=== PATIENT | female | born 1935 | race Caucasian/White ===

== ENCOUNTER 2017-10-17 04:13 | Emergency (ER) | payer OTHER ==
[~2017-10-17] VITALS: Ht 172.7 cm; Wt 71.7 kg
[2017-10-17 04:19] VITALS: Ht 172.7 cm; Wt 71.7 kg
[2017-10-17 07:06] VITALS: BP 139/72
== END 2017-10-17 07:06 | disposition home or self-care (01) ==
LOC: ED 04:13
DX: S71.111A Laceration without foreign body, right thigh, initial encounter (principal); Z88.2 Allergy status to sulfonamides; E11.9 Type 2 diabetes mellitus without complications; J44.9 Chronic obstructive pulmonary disease, unspecified; W20.8XXA Other cause of strike by thrown, projected or falling object, initial encounter; Y93.89 Activity, other specified; Y92.89 Other specified places as the place of occurrence of the external cause; Y99.8 Other external cause status; E03.9 Hypothyroidism, unspecified
CPT/HCPCS: 90715; J2001

== ENCOUNTER 2017-12-09 12:32 | Emergency (ER) | payer OTHER ==
[~2017-12-09] VITALS: Ht 167.6 cm; Wt 72.6 kg
[2017-12-09 12:41] VITALS: Ht 167.6 cm; Wt 72.6 kg
[2017-12-09 13:02] LABS: BASOPHIL % 0.5 % (0-2); PLATELET COUNT 270 x10^3mcL (130-400)
[2017-12-09 13:12] LABS: CALCIUM 10.5 mg/dL (8.5-10.1); CARBON DIOXIDE 29.8 mmol/L (21-32); CHLORIDE SERUM 103 mmol/L (98-107); CREATININE SERUM 0.9 mg/dL (0.6-1.0); GLUCOSE SERUM 103 mg/dL (74-106); POTASSIUM SERUM 4.4 mmol/L (3.5-5.1); SODIUM SERUM 140 mmol/L (136-145)
[2017-12-09 13:16] LABS: ALBUMIN 3.7 g/dL (3.4-5.0); ALKALINE PHOSPHATASE 90 U/L (46-116); ALT/SGPT 21 U/L (14-59); AST/SGOT 16 U/L (15-37); BILIRUBIN TOTAL 0.25 mg/dL (0.20-1.00); LIPASE 168 IU/L (73-393); TOTAL PROTEIN, SERUM 7.4 g/dL (6.4-8.2)
[2017-12-09 14:47] VITALS: BP 112/601
== END 2017-12-09 14:47 | disposition home or self-care (01) ==
LOC: ED 12:32
PROVIDERS: Emergency Medicine
DX: S01.01XA Laceration without foreign body of scalp, initial encounter (principal); S09.90XA Unspecified injury of head, initial encounter; J45.909 Unspecified asthma, uncomplicated; J44.9 Chronic obstructive pulmonary disease, unspecified; E11.9 Type 2 diabetes mellitus without complications; Z85.3 Personal history of malignant neoplasm of breast; E03.9 Hypothyroidism, unspecified; W18.39XA Other fall on same level, initial encounter; Y93.01 Activity, walking, marching and hiking; Y92.89 Other specified places as the place of occurrence of the external cause; Y99.8 Other external cause status; Z88.2 Allergy status to sulfonamides
CPT/HCPCS: 36415

== ENCOUNTER 2019-01-31 16:17 | Inpatient (IN) | payer OTHER ==
[~2019-01-31] VITALS: Ht 167.6 cm; Wt 70.8 kg
[2019-01-31 16:20] VITALS: Ht 167.6 cm; Wt 70.8 kg
--- NOTE | 2019-01-31 16:27 | NUR ---
PER MEDIC PT LIVES IN A CUSTODIAL WHERE SHE STARTED TO HAVE CHEST PRESSURE. PER MEDIC UPON ARRIVAL PT STS SHE HAD EPIGASTRIC PAIN THAT SUBSIDED. PT STS THAT SHE IS NOT HAVING CHEST PRESSURE AT THIS TIME. PT STS THAT THE CHEST PAIN IS INTERMITTENT AND RADIATES TO HER BACK. PT STS SHE IS LOSING HER VISION SO SHE IS ALWAYS DIZZY. PT DENEIES ANY NUMBNESS AT THIS TIME. PT STS SHE HAS SOME FATIGUE BUT NOTHING OUT OF THE NORMAL. +EQUAL [employer]NA[employer], -FACIAL DROOP. VSS. RESP E/U. NO DISTRESS NOTED. WILL CONTINUE TO MONITOR. PER MEDIC GAVE 1 SPRAY NITRO, ASPRIN 324MG PO, 4MG ZOFRAN IV. PT DENIES ANY NAUSEA AT THIS TIME.
--- NOTE | 2019-01-31 16:51 | NUR ---
CHEST XRAY IN PROGRESS.
--- NOTE | 2019-01-31 16:59 | NUR ---
LAB AT BEDSIDE.
[2019-01-31 17:16] LABS: CALCIUM 9.1 mg/dL (8.5-10.1); CARBON DIOXIDE 31.7 mmol/L (21-32); CHLORIDE SERUM 105 mmol/L (98-107); CREATININE SERUM 0.9 mg/dL (0.6-1.0); GLUCOSE SERUM 111 mg/dL (74-106); POTASSIUM SERUM 4.2 mmol/L (3.5-5.1); SODIUM SERUM 141 mmol/L (136-145)
[2019-01-31 17:21] LABS: ALBUMIN 3.5 g/dL (3.4-5.0); ALKALINE PHOSPHATASE 139 U/L (46-116); ALT/SGPT 47 U/L (14-59); AST/SGOT 80 U/L (15-37); BASOPHIL % 0.3 % (0-2); BILIRUBIN TOTAL 0.29 mg/dL (0.20-1.00); PLATELET COUNT 264 x10^3mcL (130-400); RED CELL DISTRIBUTION WIDTH 13.2 % (11.5-14.5); TOTAL PROTEIN, SERUM 6.9 g/dL (6.4-8.2)
--- NOTE | 2019-01-31 17:48 | NUR ---
PT IN POSITION OF COMFORT. PT NOT C/O CHEST DISCOMFORT AT THIS TIME. VSS. WILL CONTINUE TO MONITOR.
--- NOTE | 2019-01-31 18:53 | NUR ---
PT GIVEN DINNER FROM [facility] [place]. PT STS "I AM NOT THAT HUNGRY". PT STS TO LEAVE TRAY AT BEDSIDE. WILL CONTINUE TO MONITOR.
--- NOTE | 2019-01-31 19:12 | NUR ---
REPORT GIVEN TO DINESH FLORES, TO ASSUME CARE OF PT.
--- NOTE | 2019-01-31 19:17 | NUR ---
REPORT RECEIVED FROM JEANINE FLORES
--- NOTE | 2019-01-31 19:23 | NUR ---
PT. SITTING UP IN BED, AAOX4, NO ACUTE DISTRESS NOTED, DENIES PAIN, PT. ATE 75% OF DINNER WITHOUT DIFFICULTY, DENIES SOB, PENDING ROOM, VSS, WILL MONITOR. REPOSITIONED PT. FOR COMFORT.
--- NOTE | 2019-01-31 20:02 | NUR ---
REPORT GIVEN TO DEBORAH FLORES TELE
--- NOTE | 2019-01-31 20:23 | NUR ---
RECEIVED PT FROM ED. PT A/OX4. DENIES PAIN. DENIES SOB ON 2LNC. IV PATENT TO LAC. FAMILY AT BEDSIDE. ORIENTED PT TO ROOM AND SURROUNDINGS. CALL LIGHT WITHIN REACH, BED IN LOW POSITION. WILL CONTINUE TO MONITOR.
--- NOTE | 2019-01-31 21:38 | NUR ---
PT AND FAMILY INSIST ON PATIENT WEARING DIAPERS FROM HOME. PT AND FAMILY MADE AWARE OF POTENTAL FOR SKIN BREAKDOWN. PATIENT VERBALIZED UNDERSTANDING AND STILL INSISTED ON WEARING DIAPER.
[2019-01-31] MEDS ORDERED: NORCO1 TA2 PO (22:15)
[2019-01-31] MEDS ORDERED: HIPREX1 GM PO (22:15)
[2019-01-31] MEDS ORDERED: GABAPENTIN300 M4 PO (22:16)
[2019-01-31] MEDS ORDERED: CLARITIN10 MG PO (22:17)
[2019-01-31] MEDS ORDERED: SYNTHROID0.112 MG PO (22:17)
[2019-01-31] MEDS ORDERED: CRANBERRY CONCE PO (22:18)
[2019-01-31] MEDS ORDERED: GABAPENTIN100 M2 PO (22:19)
[2019-01-31] MEDS ORDERED: CITALOPRAM HYDR10 M1 PO (22:20)
[2019-01-31] MEDS ORDERED: CENTURY ADULTS1 EACH PO (22:25)
[2019-01-31] MEDS ORDERED: CALCIUM 600 +1 EACH PO (22:26)
[2019-01-31] MEDS ORDERED: PROBIOTIC1 EAC1 PO (22:27)
[2019-01-31] MEDS ORDERED: DORZOLAMIDE HYD10 M2 OU (22:27)
[2019-01-31] MEDS ORDERED: ALPHAGAN P5 M1 OU (22:29)
[2019-01-31] MEDS ORDERED: ALBUTEROL0.63 MG/3 (22:30)
[2019-01-31 22:52] VITALS: BP 126/53
--- NOTE | 2019-01-31 23:46 | NUR ---
PT RESTING IN NO ACUTE DISTRESS. RR EVEN AND UNLABORED. CALL LIGHT WITHIN REACH, BED IN LOW POSITION. WILL CONTINUE TO MONITOR.
[2019-01-31 23:54] LABS: CHOLESTEROL/HDL RATIO 5.3
[2019-01-31 23:58] LABS: FREE T4 1.25 ng/dL (0.76-1.46); FREE THYROXINE INDEX 3.9 ug/dL (1.4-4.5); T4(THYROXINE) 10.7 ug/dL (4.7-13.3)
[2019-02-01 00:19] LABS: T3 TOTAL 0.76 ng/mL
[2019-02-01 04:19] VITALS: BP 143/57
[2019-02-01 06:46] LABS: BASOPHIL % 0.1 % (0-2); PLATELET COUNT 238 x10^3mcL (130-400); RED CELL DISTRIBUTION WIDTH 13.4 % (11.5-14.5)
[2019-02-01 06:57] LABS: CALCIUM 9.3 mg/dL (8.5-10.1); CARBON DIOXIDE 30.1 mmol/L (21-32); CHLORIDE SERUM 109 mmol/L (98-107); CREATININE SERUM 0.8 mg/dL (0.6-1.0); GLUCOSE SERUM 96 mg/dL (74-106); SODIUM SERUM 145 mmol/L (136-145)
[2019-02-01 07:35] VITALS: BP 130/56
--- NOTE | 2019-02-01 08:11 | NUR ---
HANDOFF REPORT RECEIVED. PATIENT AWAKE AND NOT IN ANY DISTRESS. DENIES ANY CHEST PAINS OR SHORTNESS OF BREATH. INSTRUCTED TO CALL FOR ANY NEED. CALL JOYNER WITHIN REACH.
--- NOTE | 2019-02-01 10:23 | NUR ---
SEEN BY MD MALLOY. CARDIAC CONSULT WAS ORDERED.
--- NOTE | 2019-02-01 11:13 | NUR ---
POTASSIUM 40 MEQ PO FOR K 2.8 AND MAGNESIUM 2 GM IV ( MAG 1.7) GIVEN AND INFUSING IVPB. NO COMPLAINTS.
--- NOTE | 2019-02-01 12:52 | NUR ---
ECHO COMPLETED AT BEDSIDE/
[2019-02-01 13:50] VITALS: BP 132/51
--- NOTE | 2019-02-01 14:51 | NUR ---
RESTING IN BED. NO COMPLAINTS OF CHEST PAINS. IV FOUND OUT THIS MORNING AND PATIENT REFUSING ANOTHER IV ACCESS. MD CHAVIRA AWARE.
[2019-02-01 16:46] VITALS: BP 133/58
--- NOTE | 2019-02-01 18:20 | NUR ---
ZOFRAN IVP GIVEN FOR NAUSEA.
[2019-02-01 19:39] VITALS: BP 122/61
--- NOTE | 2019-02-01 20:18 | NUR ---
PT CURRENTLY RESTING IN BED, NO ACUTE DISTRESS. A/O X4. TELE #18 SHOWING SINUS RHYTHM, DENIES CHEST PAIN. PULSES PALPABLE IN ALL EXTREMITIES, NO EDEMA NOTED. LUNG SOUNDS CTA BILATERALLY, DENIES SOB. BOWEL SOUNDS ACTIVE, LAST BM 01/31/19. INCONTINENCE NOTED, PT USES DIAPERS. GENERALIZED WEAKNESS. SKIN INTACT. IV PATENT AND INTACT. BED IN LOWEST POSITION, SIDE RAILS UP X2, CALL LIGHT WITHIN REACH. WILL CONTINUE TO MONITOR.
--- NOTE | 2019-02-02 00:37 | NUR ---
PT CURRENTLY RESTING IN BED, NO ACUTE DISTRESS. WILL CONTINUE TO MONITOR.
[2019-02-02 05:00] VITALS: BP 126/58
--- NOTE | 2019-02-02 06:12 | NUR ---
PT SLEPT PERIODICALLY THROUGHOUT NIGHT, NO ACUTE DISTRESS. ALL NEEDS MET AND ATTENDED TO. NO SIGNIFICANT CHANGES. IV PATENT AND INTACT. BED IN LOWEST POSITION, SIDE RAILS UP X2, CALL LIGHT WITHIN REACH. WILL ENDORSE CARE TO ONCOMING NURSE.
--- NOTE | 2019-02-02 07:05 | NUR ---
RECEIVED PT FROM NIGHT NURSE. PT IS LAYING DOWN IN BED WITH HOB UP. PT LOOKS TO BE IN NO ACUTE DISTRESS AND DENIES ANY PAIN AT THIS TIME. RESPIRATIONS EVEN AND UNLABORED ON ROOM AIR. IV SITE PATENT WITH NO SIGNS OF ERYTHEMA OR SWELLING. TELE MONITOR PRESENT. PT COMPLAINING OF A LITTLE NAUSEA AND IS REQUESTING CRACKERS AND STATES DOES NOT NEED MEDICATION AT THIS TIME. BED IN LOWEST POSITION, CALL LIGHT WITHIN REACH. WILL CONTINUE TO MONITOR.
[2019-02-02 08:03] VITALS: BP 133/59
--- NOTE | 2019-02-02 10:15 | NUR ---
PT IS SITTING AT SIDE OF BEDSIDE. PT LOOKS TO BE IN NO ACUTE DISTRESS AT THIS TIME AND DENIES ANY PAIN AT THIS TIME. FAMILY MEMBER AT BEDSIDE. CALL LIGHT WITHIN REACH. WILL CONITNUE TO MONITOR.
[2019-02-02] MEDS ORDERED: MAALOX ADVANCED1 CTB PO (10:25)
[2019-02-02 12:03] VITALS: BP 113/60
--- NOTE | 2019-02-02 13:50 | NUR ---
PT IS SITTING AT BEDSIDE CHAIR. PT LOOKS TO BE IN NO ACUTE DISTRESS AT THIS TIME AND DENIES ANY PAIN. PT REQUESTING TO HAVE JELLO TO EAT. CALL LIGHT WITHIN REACH. WILL CONTINUE TO MONITOR.
--- NOTE | 2019-02-02 18:15 | NUR ---
INFORMED PT THAT SHE IS ABLE TO GO HOME AND IS CLEARED BY CARDIOLOGY TO GO HOME BUT NEEDS TO FOLLOW UP WITH CARDIOLOGY OUTPATIENT. PT VERBALIZED UNDERSTANDING. PT ASKED FOR NURSE TO CONTACT DAUGHTER TO PICK HER UP. INFORMED DAUGHTER OF THE PT'S DISCHARGE STATUS. FAMILY MEMBER STATED WILL BE AT HOSPITAL TO [facility] CHILD CAREGIVER PT AFTER 1700. WILL CONTINUE TO MONITOR.
[2019-02-02 18:22] VITALS: BP 133/52
--- NOTE | 2019-02-02 19:32 | NUR ---
ENDORSED TO NURSE GARCIA.
--- NOTE | 2019-02-02 19:42 | NUR ---
PT AND FAMILY EDUCATED ON DISCHARGED INSTRUCTIONS, DISCHARGE PAPERS SIGNED. PT BEING TRANSPORTED DOWNSTAIRS VIA WHEELCHAIR BY MALIK WINTERS.
== END 2019-02-02 19:30 | disposition home or self-care (01) | DRG 206 ==
LOC: ED 16:17 → DU 18:37
PROVIDERS: Emergency Medicine; ADMIT Internal Medicine
DX: M94.0 Chondrocostal junction syndrome [Tietze] (principal); K21.9 Gastro-esophageal reflux disease without esophagitis; E03.9 Hypothyroidism, unspecified; F32.9 Major depressive disorder, single episode, unspecified; J44.9 Chronic obstructive pulmonary disease, unspecified; M19.90 Unspecified osteoarthritis, unspecified site; Z79.82 Long term (current) use of aspirin; Z87.891 Personal history of nicotine dependence
CPT/HCPCS: 83880; 84439; G0378; J1200; J2405; J2765; J7030; Q0092